=== PATIENT | male | born 1995 | race Two or more races ===

== ENCOUNTER 2024-09-16 09:11 | Emergency (ER) | payer SELFPAY ==
[~2024-09-16] VITALS: Ht 188 cm; Wt 108.5 kg
[2024-09-16] MEDS: LIDOCAINE 2%HCL (LOCAL ANESTH.) INJ 10ml MDV ONE (10:31)
--- NOTE | 2024-09-16 10:52 | ED.PDOC ---
HPI Comments 28 year old male presents to the ED for the c/c of a 6cm V-Shaped Laceration to the Left Upper Eyebrow. Pt states that he ran into a tree branch 3x days ago, and placed super glue to hold Lac together. No active bleeding, denies N/V or Dizziness. No other symptoms or modifying factors reported at this time. Patient is alert and oriented x4 and has a stable gait. Chief Complaint: Laceration Time Seen by MD: 10:46 Reviewed Notes: Nurses Notes, Medications, Allergies Allergies: Coded Allergies: NO KNOWN ALLERGIES (Unverified , 09/16/24) Home Meds Active Scripts Cefdinir (Cefdinir) 300 Mg Cap, 1 CAP PO BID PRN for 7 Days, #14 CAP Prov:ULISES SHI MD 09/16/24 Information Source: Patient Mode of Arrival: Ambulatory Severity: Moderate Severity of Laceration: Controlled Bleeding Complexity: Intermediate Timing: Days Prehospital treatment: None Laceration Location: Face Mechanism: Wood Last Tetanus: Unknown Laceration Length (cm): 6 Skin Type: Linear, Jagged, Irregular Depth of Injury: Skin Tendon Injury: 0% Tender: Moderate Discharge: None Erythema: Localized to Wound Edges Associated Signs and Symptoms: None Past Medical History PAST MEDICAL HISTORY: Denies Surgical History: Denies all surgeries Family History Family History: Unknown Social History Smoker: Non-Smoker Alcohol: Denies ETOH Use Drugs: Denies Drug Use Lives In: Home Constitutional: denies: chills, diaphoresis, fatigue, fever, malaise, sweats, weakness, others EENTM: denies: blurred vision, double vision, ear bleeding, ear discharge, ear drainage, ear pain, ear ringing, eye pain, eye redness, hearing loss, mouth pain, mouth swelling, nasal discharge, nose bleeding, nose congestion, nose pain, photophobia, tearing, throat pain, throat swelling, voice changes, others Respiratory: denies: cough, hemoptysis, orthopnea, SOB at rest, shortness of breath, SOB with excertion, stridor, wheezing, others Cardiovascular: denies: chest pain, dizzy spells, diaphoresis, Dyspnea on exertion, edema, irregular heart beat, left arm pain, lightheadedness, palpitations, PND, syncope, others Gastrointestinal: denies: abdomen distended, abdominal pain, blood streaked bowels, constipated, diarrhea, dysphagia, difficulty swallowing, hematemesis, melena, nausea, poor appetite, poor fluid intake, rectal bleeding, rectal pain, vomiting, others Genitourinary: denies: burning, dysuria, flank pain, frequency, hematuria, incontinence, penile discharge, penile sore, pain, testicle pain, testicle swelling, urgency, others Neurological: denies: dizziness, fainting, headache, left sided numbness, left sided weakness, numbness, paresthesia, pre-existing deficit, right sided numbness, right sided weakness, seizure, speech problems, tingling, tremors, weakness, others Musculoskeletal: denies: back pain, gout, joint pain, joint swelling, muscle pain, muscle stiffness, neck pain, others Integumetry: reports: laceration; denies: bruises, change in color, change in hair/nails, dryness, lesions, lumps, rash, wounds, others Allergic/Immunocompromised: denies: Difficulty Healing, Frequent Infections, Hives, Itching, others Hematologic/Lymphatic: denies: anemia, blood clots, easy bleeding, easy bruising, swollen glands, others Endocrine: denies: excessive hunger, excessive sweating, excessive thirst, excessive urination, flushing, intolerance to cold, intolerance to heat, unexplained weight gain, unexplained weight loss, others Psychiatric: denies: anxiety, bipolar disorder, depression, hopeless, panic disorder, schizophrenia, sleepless, suicidal, others All Other Systems: Reviewed and Negative Physical Exam Exam Comments Patient presented with a 3-day-old laceration treated himself with the glue by the time he came to the emergency department with had two cleaned the laceration and scrubbed until the the skin became clean and then the laceration is sutured with a five 0 black monofilament General Appearance: No Apparent Distress, Normal HEENT: Normal ENT Inspection, PERRL/EOMI, Pharynx Normal, TMs Normal, Other (6cm V-shaped Lac to the left upper eyebrow, swelling with surrouding erythema to the surrouding tissues noted. Bleeding is controlled at this time) Neck: Full Range of Motion, Non-Tender, Normal, Normal Inspection Respiratory: Chest Non-Tender, Lungs Clear, No Accessory Muscle Use, No Respiratory Distress, Normal Breath Sounds Cardiovascular: No Edema, No JVD, No Murmur, No Gallop, Normal Peripheral Pulses, Regular Rate/Rhythm Breast Exam: Deferred Gastrointestinal: Non Tender, No Pulsatile Mass, Normal Bowel Sounds, Soft Genitalia: Deferred Pelvic: Deferred Rectal: Deferred Extremities: No calf tenderness, Normal capillary refill, Normal inspection, Normal range of motion, Non-tender, No pedal edema Musculoskeletal : Apperance: Normal Neurologic: Alert, No Motor Deficits, Normal Affect, Normal Mood, No Sensory Deficits Cerebellar Function: Normal Reflexes: Normal Skin: Dry, Lacerations, Normal Color, Warm Peripheral Pulses: 1+ carotid (R), 1+ carotid (L) Lymphatic: No Adenopathy Was a procedure done? Was a procedure done?: Yes Sedation Sedation?: No Laceration Repair : Location Left upper eyebrow Length 6cm V-Shaped Lac Anesthetic: Lidocaine, Without epi Laceration Repair Prep: Saline Laceration Repair Wound Comple: epidermis/dermis repair, debridement, extensive undermining, wound margins Laceration Repair: Number of sutures (5), Layers Closed (1), Skin Informed consent obtained: Yes Risks, benefits, and alternati: Yes Differential diagnosis Suture Removal: Cellulitis Generic Laceration: Hematoma, Abrasion/Contusion, Laceration Differential Diagnosis: N/A X-Ray, Labs, Meds, VS Vital Signs Date Time Temp Pulse Resp B/P (MAP) Pulse Ox O2 Delivery O2 Flow Rate FiO2 09/16/24 12:22 57 15 96 Room Air 09/16/24 12:22 97.8 57 15 124/76 (92) 96 97.8 09/16/24 11:19 97.5 60 18 129/75 (93) 99 97.5 09/16/24 09:21 98.3 70 12 120/69 (86) 96 98.3 Current Medications Medications (Trade) Dose Ordered Sig/Lidya Route Start Time Stop Time Status Last Admin Diphtheria/ Tetanus/Acell Pertussis (Boostrix T-Dap) 0.5 ml ONCE ONCE IM 09/16/24 12:30 09/16/24 12:31 DC 09/16/24 12:36 Neomycin/ Polymyxin/ Bacitracin (Triple Antibiotic) 1 applic ONCE ONCE TOP 09/16/24 12:30 09/16/24 12:31 DC 09/16/24 12:37 X-Ray, Labs, Meds, VS Comment Course in emergency department eventful patient came with 3-day-old laceration which she try to close with the glue Extensive debridement and undermining laceration cleaned heavily until the the margins are clean then repaired with five 0 black monofilament the patient accepted the procedure very well Time of 1ST Reevaluation: 11:17 Reevaluation 1ST: Unchanged Time of 2ND Reevaluation: 11:49 Reevaluation 2ND: Improved Consultation: PCP Patient Education/Counseling: Diagnosis, Treatment, Prognosis, Need For Follow Up Family Education/Counseling: Diagnosis, Treatment, Prognosis, Need For Follow Up, No Family Present Departure 1 Departure Time of Disposition: 11:49 Impression: Primary Impression: Forehead laceration Qualified Codes: S01.81XA - Laceration without foreign body of other part of head, initial encounter Disposition: HOME / SELF CARE / HOMELESS Condition: Good Additional Instructions: Keep laceration clean and dry and re-evaluation within three days e-Prescriptions Cefdinir (Cefdinir) 300 Mg Cap 1 CAP PO BID PRN for 7 Days, #14 CAP Prov: ULISES SHI MD 09/16/24 Discharged With: Self Critical Care Note Critical Care Time?: No Stability Stability form required: No Heart Score Heart Score: Heart Score Response (Comments) Value History N/A 0 EKG N/A 0 Age <45 0 Risk Factors No known risk factors 0 Troponin N/A 0 Total 0 I personally scribed for ULISES SHI MD ([email or web address]) on 09/16/24 at 10:52. Electronically submitted by Josemanuel Hurst ([email or web address]). I personally scribed for ULISES SHI MD ([email or web address]) on 09/16/24 at 11:32. Electronically submitted by Josemanuel Hurst ([email or web address]). ULISES SHI MD Sep 16, 2024 10:52
[2024-09-16] MEDS: LIDOCAINE 2%HCL (LOCAL ANESTH.) INJ 10ml MDV IJ ONE (10:57)
[2024-09-16] MEDS ORDERED: CEFD300C2 PO (11:51)
[2024-09-16 12:22] VITALS: BP 124/76; PULSE 57; RESP 15; TEMP 97.8; O2SAT 96
[2024-09-16] MEDS: TETANUS-DIPTH-ACEL PERTUSSIS 0.5ML SYR Tdap IM ONE (12:36)
[2024-09-16] MEDS: NEOMYCIN-BACITRACIN-POLYM UNITDOSE PKG TOP OINT TOP ONE (12:37)
== END 2024-09-16 12:40 | disposition home or self-care (01) ==
LOC: ER 09:11
DX: S01.81XA Laceration without foreign body of other part of head, initial encounter (principal); X58.XXXA Exposure to other specified factors, initial encounter; Y93.89 Activity, other specified; Y92.89 Other specified places as the place of occurrence of the external cause; Y99.8 Other external cause status
CPT/HCPCS: 12053; 90471; 90715; 99284; J2003